=== PATIENT | male | born 1935 | race Caucasian/White ===

== ENCOUNTER → 2018-03-24 | Outpatient (CLI) | payer MEDICARE, BC ==
--- NOTE | 2018-03-24 17:07 | XR ---
EXAMINATION TYPE: XR foot complete LT DATE OF EXAM: 03/24/2018 COMPARISON: NONE HISTORY: Lateral foot pain TECHNIQUE: 3 views FINDINGS: There is spurring and narrowing at the first MP joint. I see no fracture nor dislocation. T here are small degenerative cystic change and erosion at the base of the fifth metatarsal. There are small cystic changes at the first MP joint. There is increased soft tissue density adjacent to the cy stic changes. IMPRESSION: Findings as above. No acute bony abnormality. This could relate to gouty arthritis. No fr acture.
--- NOTE | 2018-03-25 07:44 | US ---
EXAMINATION TYPE: US venous doppler duplex UE LT DATE OF EXAM: 03/24/2018 COMPARISON: NONE CLINICAL HISTORY: R22.32 Swelling of Left Upper Limb. swelling this am, on thinners SIDE PERFORMED: Left Left Arm: Appears negative for DVT Grayscale, color doppler, spectral doppler imaging performed of the deep veins of the left upper extr emity. Visualized portions of the internal jugular vein on the left, subclavian vein, axillary vein, brachial vein, basilic and cephalic veins, radial and ulnar veins are normal. Soft tissue swelling n oted incidentally in the left forearm. There is normal flow, compressibility and vascular waveforms. IMPRESSION: No evident deep venous thrombosis in the visualized veins of the left upper extremity. Follow-up as indicated.
== END | disposition home or self-care (01) ==
LOC: RADUSWWP 15:31
PROVIDERS: ATTEND Internal Medicine
DX: M77.52 Other enthesopathy of left foot and ankle (principal); M25.872 Other specified joint disorders, left ankle and foot; R22.42 Localized swelling, mass and lump, left lower limb; M79.672 Pain in left foot; R22.32 Localized swelling, mass and lump, left upper limb

== ENCOUNTER 2023-03-15 19:56 | Inpatient (IN) | payer MEDICARE, BC ==
[2023-03-15] MEDS ORDERED: ASPIRIN 81 MG PO STA (20:19)
[2023-03-15 20:28] LABS: Basophils % (A) 0 %; Eosinophils # (A) 0.2 k/uL (0-0.7); Eosinophils % (A) 4 %; HGB 15.3 gm/dL (13.0-17.5); Lymphocytes # (A) 1.1 k/uL (1.0-4.8); Lymphocytes % (A) 21 %; MCH 31.8 pg (25.0-35.0); MCHC 32.6 g/dL (31.0-37.0); MCV 97.7 fL (80.0-100.0); Mean Platelet Volume 8.9; Monocytes # (A) 0.6 k/uL (0-1.0); Monocytes % (A) 11 %; Neutrophils # (A) 3.4 k/uL (1.3-7.7); Neutrophils % (A) 63 %; Platelet Count 130 k/uL (150-450); RBC 4.81 m/uL (4.30-5.90); WBC 5.4 k/uL (3.8-10.6)
[2023-03-15 20:35] LABS: ALT 25 U/L (4-49); AST 29 U/L (17-59); African American GFR (CKD) >90 (>60 ml/min/1.73 sqM); Albumin 4.3 g/dL (3.5-5.0); Alkaline Phosphatase 58 U/L (38-126); Anion Gap 11 mmol/L; Blood Urea Nitrogen 25 mg/dL (9-20); Calcium 9.9 mg/dL (8.4-10.2); Carbon Dioxide 23 mmol/L (22-30); Chloride 103 mmol/L (98-107); Glucose 205 mg/dL (74-99); Non-African American GFR(CKD) 79 (>60 ml/min/1.73 sqM); Potassium 4.4 mmol/L (3.5-5.1); Sodium 137 mmol/L (137-145); Total Bilirubin 0.8 mg/dL (0.2-1.3)
[2023-03-15 20:40] LABS: INR 2.5 (<1.2); Partial Thromboplastin Time 28.1 sec (22.0-30.0); Prothrombin Time 24.2 sec (9.0-12.0)
--- NOTE | 2023-03-15 20:48 | XR ---
EXAMINATION TYPE: XR chest 2V DATE OF EXAM: 03/15/2023 COMPARISON: 03/15/2011 HISTORY: Shortness of breath TECHNIQUE: Frontal and lateral views of the chest are obtained. FINDINGS: Scattered senescent parenchymal changes noted. No evidence for infiltrate. No evidence for atelectasis. Heart size is stable. Mediastinal structures are stable and grossly unremarkable. No evidence for hilar prominence. Degenerative changes dorsal spine. IMPRESSION: 1. No evidence for acute pulmonary disease.
[2023-03-15] MEDS ORDERED: NALOXONE 0.4 MG/ML 1 ML VIAL IV PRN (21:25)
[2023-03-15] MEDS ORDERED: WARFARIN 5 MG TAB PO ONE (21:45)
[2023-03-15] MEDS: METOPROLOL TARTRATE 25 MG TAB PO SCH (21:52)
[2023-03-15] MEDS: lisinopriL 5 MG TAB PO SCH (21:56)
[2023-03-15] MEDS: ATORVASTATIN 40 MG TAB PO SCH (22:05)
--- NOTE | 2023-03-15 22:07 | ED ---
General Adult HPI - General Chief complaint: Arrhythmia/Palpitations Stated complaint: AFib Time Seen by Provider: 03/15/23 20:13 Source: patient, EMS, RN notes reviewed, old records reviewed Mode of arrival: EMS Limitations: no limitations - History of Present Illness Initial comments: Patient is an 87-year-old male with past medical history of atrial fibrillation, cardiac bypass, with a pacemaker. Dr. Encinas's office who presents emergency Department complaining of a strange chest discomfort he fell earlier over the left side of his chest, as well as complaints of he may have gone into A. fib. States this has happened twice today. After the second time he called EMS. He states he felt lightheaded like he is given a passed out, had some left sided chest discomfort at that time which also resolved and felt like he had palpitations. Currently is asymptomatic. Denies any shortness of breath. Denies any diaphoresis. Denies any nausea or vomiting. Denies any abdominal pain. Presents over concern for his chest discomfort earlier. He is concerned he may be in A. fib. Uncertain if he is always in A. fib. Denies being shocked by his AICD. - Related Data Home Medications Medication Instructions Recorded Confirmed lisinopriL [Zestril] 5 mg PO BID 04/18/14 03/15/23 Furosemide [Lasix] 20 mg PO DAILY 03/30/18 03/15/23 Warfarin [Coumadin] 5 mg PO PC-SUPPER 03/30/18 03/15/23 Metoprolol Tartrate [Lopressor] 25 mg PO BID 03/15/23 03/15/23 Rosuvastatin [Crestor] 20 mg PO HS 03/15/23 03/15/23 Allergies Allergy/AdvReac Type Severity Reaction Status Date / Time Penicillins Allergy Unknown Verified 03/15/23 22:05 Childhood molds Allergy Mild Unknown Uncoded 03/15/23 22:05 Review of Systems ROS Statement: Those systems with pertinent positive or pertinent negative responses have been documented in the HPI. Review of Systems: CONST: Denies fever EYES: Denies blurry vision ENT: Denies nasal congestion C/V: Denies Chest pain RESP: Denies shortness of breath GI: Denies abdominal pain : Denies dysuria SKIN: Denies rash. MSK: Denies joint pain. NEURO: Denies headache ROS Other: All systems not noted in ROS Statement are negative. Past Medical History Past Medical History: Coronary Artery Disease (CAD), Diabetes Mellitus, GERD/Reflux, Hyperlipidemia, Myocardial Infarction ([place]), Osteoarthritis (OA) Additional Past Medical History / Comment(s): see Dr Mckeon [facility] & [facility] for cardiac hx, SOB,, "borderline diabetic- watches diet", hx gout, arthritis, POLIO AT AGE 3, Last Myocardial Infarction Date:: 1969 History of Any Multi-Drug Resistant Organisms: None Reported Past Surgical History: Cardiac Ablation, Coronary Bypass/CABG, Orthopedic Surgery Additional Past Surgical History / Comment(s): bone surgery on left ankle age 16, CABG 13 YRS AGO Past Anesthesia/Blood Transfusion Reactions: Previous Problems w/ Anesthesia Additional Past Anesthesia/Blood Transfusion Reaction / Comment(s): got gout in big toe after cardiac ablation Type of Cardiac Device: AICD Device Placement Date:: unknown Past Psychological History: No Psychological Hx Reported Smoking Status: Former smoker Past Alcohol Use History: Occasional Past Drug Use History: None Reported - Past Family History Sister(s) Family Medical History: Cancer General Exam - General Exam Comments Initial Comments: General: Appears in no acute distress. HEAD: Normal with no signs of head trauma. EYES: PERRLA, EOMI, conjunctiva normal, no discharge. ENT: Hearing grossly intact, normal oropharynx. RESPIRATORY: Clear breath sounds bilaterally. No wheezes, rales, or rhonchi. C/V: Regular rate and rhythm. S1 and S2 auscultated, no edema, peripheral pulses 2+ and intact throughout ABD: Abd is soft, nontender, nondistended EXT: Normal range of motion, no obvious deformity SKIN: No rashes or lesions observed on exposed skin. NEURO: Alert and oriented x 4. Cranial nerves II-XII intact. No focal sensory or strength deficits. Limitations: no limitations Course Vital Signs 03/15/23 03/15/23 20:02 21:59 Pulse Rate 53 L 50 L Respiratory 18 18 Rate Blood Pressure 129/72 112/68 O2 Sat by Pulse 97 98 Oximetry Medical Decision Making - Medical Decision Making Was pt. sent in by a medical professional or institution (, PA, WASH OPERATOR, urgent care, hospital, or [facility]...) When possible be specific @ -No Did you speak to anyone other than the patient for history (EMS, parent, family, police, friend...)? What history was obtained from this source @ -No Did you review nursing and triage notes (agree or disagree)? Why? @ -I reviewed and agree with nursing and triage notes Were old charts reviewed (outside hosp., previous admission, EMS record, old EKG, old radiological studies, urgent care reports/EKG's, [facility] records)? Report findings @ -Old charts reviewed. Differential Diagnosis (chest pain, altered mental status, abdominal pain women, abdominal pain men, vaginal bleeding, weakness, fever, dyspnea, syncope, headache, dizziness, GI bleed, back pain, seizure, CVA, palpatations, mental health, musculoskeletal)? @ -Differential Chest Pain: Stable Angina, Unstable Angina, STEMI, NSTEMI Aortic Dissection, Pneumothorax, Musculoskeletal, Esophageal Spasm GERD, Cholecystitis, Pancreatitis, Zoster, this is not meant to be an all-inclusive list. EKG interpreted by me (3pts min.). @ -As above X-rays interpreted by me (1pt min.). @ -Chest x-ray reveals no obvious acute cardio pulmonary process. CT interpreted by me (1pt min.). @ -None done U/S interpreted by me (1pt. min.). @ -None done What testing was considered but not performed or refused? (CT, X-rays, U/S, labs)? Why? @ -None What meds were considered but not given or refused? Why? @ -None Did you discuss the management of the patient with other professionals (professionals i.e. , PA, WASH OPERATOR, lab, RT, psych nurse, social worker clinical, copy messenger, teacher, professional security officer, spring encaser)? Give summary @ -No Was smoking cessation discussed for >3mins.? @ -No Was critical care preformed (if so, how long)? @ -No Were there social determinants of health that impacted care today? How? (Homelessness, low income, unemployed, alcoholism, drug addiction, transportation, low edu. Level, literacy, decrease access to med. care, penitentiary, rehab)? @ -No Was there de-escalation of care discussed even if they declined (Discuss DNR or withdrawal of care, Hospice)? DNR status @ -No What co-morbidities impacted this encounter? (DM, HTN, Smoking, COPD, CAD, Cancer, CVA, ARF, Chemo, Hep., AIDS, mental health diagnosis, sleep apnea, morb id obesity)? @ -Significant cardiac history Was patient admitted / discharged? Hospital course, mention meds given and route, prescriptions, significant lab abnormalities, going to OR and other pertinent info. @ -Based on the patient's presentation and physical exam, I'm concerned for acute cardiopulmonary etiology for his current symptoms. We will obtain cardio pulmonary labs. He currently is asymptomatic. He'll be given 324 mg of asp irin. He was in agreement this plan. Vital signs within acceptable limits. EKGs show, that when he is not paced he has some T-wave inversions of unknown chronicity. No obvious ST segment abnormalities. Chest x-ray is unremarkable. Laboratory studies are remarkable for an undetectable troponin. INR is therapeutic. On reevaluation, patient maintains asymptomatic. Patient's heart score is mo derate. We did discuss his results. He will be admitted to observation telemetry. Cardiology will be consulted. He was in agreement this plan. I spoke with the admitting physician, Dr. Loza who accepted the patient. Undiagnosed new problem with uncertain prognosis? @ -No Drug Therapy requiring intensive monitoring for toxicity (Heparin, Nitro, Insulin, Cardizem)? @ -No Were any procedures done? @ -No Diagnosis/symptom? @ -Chest discomfort Acute, or Chronic, or Acute on Chronic? @ -Acute Uncomplicated (without systemic symptoms) or Complicated (systemic symptoms)? @ -Complicated Side effects of treatment? @ -No Exacerbation, Progression, or Severe Exacerbation? @ -No Poses a threat to life or bodily function? How? (Chest pain, [place], AL, pneumonia, PE, COPD, DKA, ARF, appy, cholecystitis, CVA, Diverticulitis, Homicidal, Suicidal, threat to staff... and all critical care pts) @ -yes Diagnosis/symptom? @ -Atrial fibrillation Acute, or Chronic, or Acute on Chronic? @ -Chronic Uncomplicated (without systemic symptoms) or Complicated (systemic symptoms)? @ -Uncomplicated Side effects of treatment? @ -none Exacerbation, Progression, or Severe Exacerbation] @ -no Poses a threat to life or bodily function? @ -no - Lab Data Result diagrams: 03/15/23 20:05 03/15/23 20:05 Lab Results 03/15/23 03/15/23 03/15/23 Range/Units 20:05 20:05 20:05 WBC 5.4 (3.8-10.6) k/uL RBC 4.81 (4.30-5.90) m/uL Hgb 15.3 (13.0-17.5) gm/dL Hct 47.0 (39.0-53.0) % MCV 97.7 (80.0-100.0) fL MCH 31.8 (25.0-35.0) pg MCHC 32.6 (31.0-37.0) g/dL RDW 14.0 (11.5-15.5) % Plt Count 130 L (150-450) k/uL MPV 8.9 Neutrophils % 63 % Lymphocytes % 21 % Monocytes % 11 % Eosinophils % 4 % Basophils % 0 % Neutrophils # 3.4 (1.3-7.7) k/uL Lymphocytes # 1.1 (1.0-4.8) k/uL Monocytes # 0.6 (0-1.0) k/uL Eosinophils # 0.2 (0-0.7) k/uL Basophils # 0.0 (0-0.2) k/uL PT 24.2 H (9.0-12.0) sec INR 2.5 H (<1.2) APTT 28.1 (22.0-30.0) sec Sodium 137 (137-145) mmol/L Potassium 4.4 (3.5-5.1) mmol/L Chloride 103 (98-107) mmol/L Carbon Dioxide 23 (22-30) mmol/L Anion Gap 11 mmol/L BUN 25 H (9-20) mg/dL Creatinine 0.83 (0.66-1.25) mg/dL Est GFR (CKD-EPI)AfAm >90 (>60 ml/min/1.73 sqM) Est GFR (CKD-EPI)NonAf 79 (>60 ml/min/1.73 sqM) Glucose 205 H (74-99) mg/dL Calcium 9.9 (8.4-10.2) mg/dL Magnesium 2.0 (1.6-2.3) mg/dL Total Bilirubin 0.8 (0.2-1.3) mg/dL AST 29 (17-59) U/L ALT 25 (4-49) U/L Alkaline Phosphatase 58 (38-126) U/L Troponin I (0.000-0.034) ng/mL NT-Pro-B Natriuret Pep pg/mL Total Protein 7.0 (6.3-8.2) g/dL Albumin 4.3 (3.5-5.0) g/dL 03/15/23 03/15/23 Range/Units 20:05 20:05 WBC (3.8-10.6) k/uL RBC (4.30-5.90) m/uL Hgb (13.0-17.5) gm/dL Hct (39.0-53.0) % MCV (80.0-100.0) fL MCH (25.0-35.0) pg MCHC (31.0-37.0) g/dL RDW (11.5-15.5) % Plt Count (150-450) k/uL MPV Neutrophils % % Lymphocytes % % Monocytes % % Eosinophils % % Basophils % % Neutrophils # (1.3-7.7) k/uL Lymphocytes # (1.0-4.8) k/uL Monocytes # (0-1.0) k/uL Eosinophils # (0-0.7) k/uL Basophils # (0-0.2) k/uL PT (9.0-12.0) sec INR (<1.2) APTT (22.0-30.0) sec Sodium (137-145) mmol/L Potassium (3.5-5.1) mmol/L Chloride (98-107) mmol/L Carbon Dioxide (22-30) mmol/L Anion Gap mmol/L BUN (9-20) mg/dL Creatinine (0.66-1.25) mg/dL Est GFR (CKD-EPI)AfAm (>60 ml/min/1.73 sqM) Est GFR (CKD-EPI)NonAf (>60 ml/min/1.73 sqM) Glucose (74-99) mg/dL Calcium (8.4-10.2) mg/dL Magnesium (1.6-2.3) mg/dL Total Bilirubin (0.2-1.3) mg/dL AST (17-59) U/L ALT (4-49) U/L Alkaline Phosphatase (38-126) U/L Troponin I 0.013 (0.000-0.034) ng/mL NT-Pro-B Natriuret Pep 3620 pg/mL Total Protein (6.3-8.2) g/dL Albumin (3.5-5.0) g/dL - EKG Data -: EKG Interpreted by Me EKG Comments: 12-lead Electrocardiogram Interpretation Note EKG was reviewed and interpreted by myself. 12-lead ECG performed at 2005 is interpreted by me as revealing atrial fibrillation at a rate of 51 beats per minute. [place] is normal.. QRS duration of 126 ms, QTc of 446 ms. T wave inversions in the lateral precordial leads as well as leads II, III, aVF. Unknown chronicity.. R wave progression across the precordium was satisfactory. 12-lead Electrocardiogram Interpretation Note EKG was reviewed and interpreted by myself. 12-lead ECG performed at 2119 is interpreted by me as revealing ventricular paced rhythm with underlying A. fib at a rate of 49 beats per minute. Left axis deviation. QRS ration is 197 ms, QTc is 522 ms. There were no obvious ST or T wave abnormalities to suggest myocardial ischemia or injury. . . Disposition Clinical Impression: Atrial fibrillation, Chest discomfort Disposition: ADMITTED IP TO THIS HOSP Condition: Stable Time of Disposition: 21:25
[2023-03-16 03:22] LABS: Basophils % (A) 0 %; Eosinophils # (A) 0.2 k/uL (0-0.7); Eosinophils % (A) 3 %; HCT 46.1 % (39.0-53.0); Lymphocytes # (A) 1.8 k/uL (1.0-4.8); Lymphocytes % (A) 31 %; MCH 31.2 pg (25.0-35.0); MCHC 32.5 g/dL (31.0-37.0); MCV 96.2 fL (80.0-100.0); Monocytes # (A) 0.5 k/uL (0-1.0); Monocytes % (A) 8 %; Neutrophils # (A) 3.3 k/uL (1.3-7.7); Neutrophils % (A) 55 %; Platelet Count 128 k/uL (150-450); RBC 4.79 m/uL (4.30-5.90); RDW 14.4 % (11.5-15.5); WBC 5.9 k/uL (3.8-10.6)
[2023-03-16 03:38] LABS: INR 2.7 (<1.2); Prothrombin Time 26.4 sec (9.0-12.0)
[2023-03-16 03:41] LABS: African American GFR (CKD) >90 (>60 ml/min/1.73 sqM); Anion Gap 8 mmol/L; Blood Urea Nitrogen 24 mg/dL (9-20); Calcium 9.9 mg/dL (8.4-10.2); Carbon Dioxide 24 mmol/L (22-30); Chloride 105 mmol/L (98-107); Glucose 131 mg/dL (74-99); Non-African American GFR(CKD) 81 (>60 ml/min/1.73 sqM); Potassium 4.3 mmol/L (3.5-5.1); Sodium 137 mmol/L (137-145)
[2023-03-16] MEDS ORDERED: AMIODARONE 360 MG in DEXTROSE 5% IN WATER 200 ML IV ONE ×2 (08:19)
[2023-03-16] MEDS ORDERED: DEXTROSE 5% IN WATER 100 ML with AMIODARONE 150 MG IV ONE (08:19)
[2023-03-16] MEDS: FUROSEMIDE 10 MG/ML 2 ML VIAL IV SCH ×3 (09:34→23:56)
[2023-03-16] MEDS: FUROSEMIDE 20 MG TAB PO SCH (09:38)
--- NOTE | 2023-03-16 09:40 | P.CRDCN ---
History of Present Illness Consult date: 03/16/23 Consult reason: chest pain, atrial fibrillation History of present illness: History of present illness: This is an 87 year old male patient of Dr. 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 He has a past medical history of ischemic cardiomyopathy status post dual-chamber ICD, V. tach status post ablation, ascending aortic aneurysm, abdominal aortic aneurysm, coronary artery disease, inferior wall aneurysm, paroxysmal atrial fibrillation on Coumadin, hypertension, hyperlipidemia. Patient states for the last 3-4 days he has had episodes where his heart is racing and he feels sometimes lightheaded and dizzy and also has shortness of breath. He states last evening he was sitting at the supper table and it was the worst episode he had so far. He states he almost passed out at that time while he was sitting. He denies having any chest pain with the episodes. Patient was brought into the emergency center and admitted to the observation unit. Patient has had 4 episodes of ventricular tachycardia with heart rate up to 100. Device has been interrogated and it does not appear the patient has had a defibrillator shock. Patient denies having a defibrillator shock. Patient also states that he had an episode this morning when he stood up to use the urinal. He still does not feel quite back to baseline. EKG ventricular paced rhythm, sinus rhythm, telemetry has episodes of atrial fibrillation and flutter and V. tach Chest x-ray: No acute findings WBC 5.9, hemoglobin 15, platelet count 128. INR 2.7. BUN 24 creatinine 0.78. Potassium 4.3, sodium 137. Magnesium 2.0. Troponin negative 3. ProBNP 3620. Blood sugar 131. INR 2.7 Home cardiac medications: Lasix 20 mg daily, lisinopril 5 mg twice daily, Lopressor 25 mg twice daily, Crestor 20 mg at bedtime, Coumadin 5 mg at supper daily Cardiac catheterization in 2007 revealed distal left main 20%, LAD multiple areas of stenosis, diagonal 160%, diagonal to 40%, RCA and LCx totally occluded. [place] to LAD patent. SVG to RCA in 2 LCx patent. Echocardiogram 08/2022 EF 35-40%, grade 2 diastolic dysfunction, mild LVH, severe LAE, ascending aortic aneurysm, moderate to severe MR, moderate TR, RVSP 39 mmHg. Ablation ventricular tachycardia April 2013 Dual-chamber ICD [employer] for severe ischemic cardiomyopathy myopathy and V. fib arrest 05/2008 [place] scan stress test 2019 no ischemia Review Of Systems: At the time of my evaluation: Constitutional: No fever, no chills. No weakness, reports fatigue no lethargy. EENT: No headache. No dizziness. Lungs: Reports shortness of breath, no cough, no sputum production. No wheezing. Cardiovascular: No chest pain, no lower extremity edema. Reports palpitations. No paroxysmal nocturnal dyspnea. No orthopnea. Reports lightheadedness or dizziness. No syncopal episodes. Abdominal: No abdominal pain. No nausea, vomiting. No diarrhea. No constipation. No bloody or tarry stools. Genitourinary: No dysuria.. No urinary retention. Musculoskeletal: No myalgias. No muscle weakness, no frequent falls. No back pain. No neck pain. Integumentary: No wounds. No rash. No unusual bruising. Neurologic: No aphasia. No facial droop. No change in mentation. No head injury. No headache. Physical examination: Gen: This is an 87-year-old male. He is resting in bed and appears to be comfortable at rest. VS: reviewed HEENT: Head is atraumatic, normocephalic. Pupils equal, round. Sclerae is anicteric. NECK: Supple. No JVD. . LUNGS: Clear to auscultation. No wheezes or rhonchi. No intercostal retractions. HEART: Regular rate and rhythm. Systolic murmur. ABDOMEN: Soft No tenderness. EXTREMITIES: No pedal edema. No calf tenderness. NEUROLOGICAL: Patient is awake, alert and oriented x3. Assessment: Recurrent ventricular tachycardia Atrial fibrillation/atrial flutter Ischemic cardiomyopathy status post dual-chamber ICD History of ventricular tachycardia status post ablation Ascending aortic aneurysm Abdominal aortic aneurysm Coronary artery disease Paroxysmal atrial fibrillation Hypertension Hyperlipidemia Plan: Continue patient's home cardiac medications Start patient on amiodarone bolus followed by drip Start patient on Lasix 20 mg IV every 8 hours Transfer a shunt to the cardiac stepdown unit Repeat blood work in the morning Further recommendations to follow based upon clinical course Thank you kindly for this consultation. Nurse practitioner note has been reviewed, I agree with documented findings and plan of care. Patient was seen and examined. Past Medical History Past Medical History: Coronary Artery Disease (CAD), Diabetes Mellitus, GERD/Reflux, Hyperlipidemia, Myocardial Infarction ([place]), Osteoarthritis (OA) Additional Past Medical History / Comment(s): see Dr Mckeon [facility] & P for cardiac hx, SOB,, "borderline diabetic- watches diet", hx gout, arthritis, POLIO AT AGE 3, Last Myocardial Infarction Date:: 1969 History of Any Multi-Drug Resistant Organisms: None Reported Past Surgical History: Cardiac Ablation, Coronary Bypass/CABG, Orthopedic Surgery Additional Past Surgical History / Comment(s): bone surgery on left ankle age 16, CABG 13 YRS AGO Past Anesthesia/Blood Transfusion Reactions: Previous Problems w/ Anesthesia Additional Past Anesthesia/Blood Transfusion Reaction / Comment(s): got gout in big toe after cardiac ablation Type of Cardiac Device: AICD Device Placement Date:: unknown Past Psychological History: No Psychological Hx Reported Smoking Status: Former smoker Past Alcohol Use History: Occasional Past Drug Use History: None Reported - Past Family History Sister(s) Family Medical History: Cancer Medications and Allergies Home Medications Medication Instructions Recorded Confirmed Type lisinopriL [Zestril] 5 mg PO BID 04/18/14 03/15/23 History Furosemide [Lasix] 20 mg PO DAILY 03/30/18 03/15/23 History Warfarin [Coumadin] 5 mg PO PC-SUPPER 03/30/18 03/15/23 History Metoprolol Tartrate [Lopressor] 25 mg PO BID 03/15/23 03/15/23 History Rosuvastatin [Crestor] 20 mg PO HS 03/15/23 03/15/23 History Allergies Allergy/AdvReac Type Severity Reaction Status Date / Time Penicillins Allergy Unknown Verified 03/15/23 22:05 Childhood molds Allergy Mild Unknown Uncoded 03/15/23 22:05 Physical Exam Vitals: Vital Signs Temp Pulse Pulse Resp BP BP Pulse Ox 03/16/23 07:02 97.6 F 53 L 16 115/73 95 03/16/23 02:00 97.5 F L 57 L 16 124/78 97 03/15/23 22:15 96.4 F L 60 16 123/78 97 03/15/23 21:59 50 L 18 112/68 98 03/15/23 20:02 53 L 18 129/72 97 Intake and Output 03/15/23 03/16/23 03/16/23 22:59 06:59 14:59 Output Total 300 Balance -300 Output: Urine 300 Other: Weight 64.41 kg Results 03/16/23 02:54 03/16/23 02:54 Cardiac Enzymes 03/15/23 03/15/23 03/16/23 Range/Units 20:05 20:05 00:00 AST 29 (17-59) U/L Troponin I 0.013 0.013 (0.000-0.034) ng/mL 03/16/23 Range/Units 02:54 AST (17-59) U/L Troponin I 0.014 (0.000-0.034) ng/mL Coagulation 03/15/23 03/16/23 Range/Units 20:05 02:54 PT 24.2 H 26.4 H (9.0-12.0) sec APTT 28.1 (22.0-30.0) sec CBC 03/15/23 03/16/23 Range/Units 20:05 02:54 WBC 5.4 5.9 (3.8-10.6) k/uL RBC 4.81 4.79 (4.30-5.90) m/uL Hgb 15.3 15.0 (13.0-17.5) gm/dL Hct 47.0 46.1 (39.0-53.0) % Plt Count 130 L 128 L (150-450) k/uL Comprehensive Metabolic Panel 03/15/23 03/16/23 Range/Units 20:05 02:54 Sodium 137 137 (137-145) mmol/L Potassium 4.4 4.3 (3.5-5.1) mmol/L Chloride 103 105 (98-107) mmol/L Carbon Dioxide 23 24 (22-30) mmol/L BUN 25 H 24 H (9-20) mg/dL Creatinine 0.83 0.78 (0.66-1.25) mg/dL Glucose 205 H 131 H (74-99) mg/dL Calcium 9.9 9.9 (8.4-10.2) mg/dL AST 29 (17-59) U/L ALT 25 (4-49) U/L Alkaline Phosphatase 58 (38-126) U/L Total Protein 7.0 (6.3-8.2) g/dL Albumin 4.3 (3.5-5.0) g/dL Current Medications Generic Name Dose Route Start Last Admin Trade Name Freq PRN Reason Stop Dose Admin Atorvastatin Calcium 40 mg 03/15/23 21:30 03/15/23 22:05 Atorvastatin 40 Mg Tab PO [address] [facility] Administration Furosemide 20 mg 03/16/23 09:00 Furosemide 20 Mg Tab PO [address]ILY [facility] Lisinopril 5 mg 03/15/23 21:30 03/15/23 21:56 Lisinopril 5 Mg Tab PO Not Given BID [facility] Metoprolol Tartrate 25 mg 03/15/23 21:30 03/15/23 21:52 Metoprolol Tartrate 25 Mg Tab PO Not Given BID [facility] Miscellaneous Information 0 each 03/15/23 21:52 Warfarin Per Pharmacy MISCELLANE DIRECTED PRN PERPROTOCOL Naloxone HCl 0.2 mg 03/15/23 21:25 Naloxone 0.4 Mg/Ml 1 Ml Vial IV Q2M PRN Opioid Reversal Warfarin Sodium 5 mg 03/16/23 18:30 Warfarin 5 Mg Tab PO PC-SUPPER [facility] Protocol Intake and Output 03/15/23 03/16/23 03/16/23 22:59 06:59 14:59 Output Total 300 Balance -300 Output: Urine 300 Other: Weight 64.41 kg 03/16/23 02:54 03/16/23 02:54
[2023-03-16] MEDS: METOPROLOL TARTRATE 25 MG TAB PO SCH ×2 (09:41→21:28)
[2023-03-16] MEDS: lisinopriL 5 MG TAB PO SCH ×2 (11:42→21:28)
--- NOTE | 2023-03-16 14:13 | P.HPIM ---
History of Present Illness H&P Date: 03/16/23 HISTORY OF PRESENT ILLNESS This is an 87-year-old male with past medical history of ischemic cardiomyopathy status post dual-chamber ICD, V. tach status post ablation, ascending aortic aneurysm, abdominal aortic aneurysm, coronary artery disease, inferior wall aneurysm, paroxysmal atrial fibrillation on Coumadin, hypertension, hyperlipidemia, ALLERGIC rhinitis, depression, generalized osteoarthritis. Patient states for the last 3-4 days he has had episodes where his heart is racing and he feels sometimes lightheaded and dizzy and also has shortness of breath. He states last evening he was sitting at the supper table and it was the worst episode he has had so far. He states he almost passed out at that time while he was sitting. He denies having any chest pain with the episodes. Patient was brought into the emergency center and admitted to the observation unit. Patient has had 4 episodes of ventricular tachycardia with heart rate up to 100. Patient also states that he had an episode this morning when he stood up to use the urinal. He does not feel that the defibrillator fired. He still does not feel quite back to baseline. Patient was seen by cardiology, device was interrogated. Patient was started on amiodarone drip and transferred to ICU waiting for a cardiac stepdown unit. REVIEW OF SYSTEMS Constitutional: No fever, no chills, no night sweats. No weight change. No weakness, fatigue or lethargy. No daytime sleepiness. EENT: No headache. No blurred vision or double vision, no loss of vision. No loss of Hearing, no ringing in the ears, no dizziness. No nasal drainage or congestion. No epistaxis. No sore throat. Lungs: No shortness of breath, cough, no sputum production. No wheezing. Cardiovascular: No chest pain, no lower extremity edema. No palpitations. No paroxysmal nocturnal dyspnea. No orthopnea. No lightheadedness or dizziness. No syncopal episodes. Abdominal: No abdominal pain. No nausea, vomiting. No diarrhea. No constipation. No bloody or tarry stools. No loss of appetite. Genitourinary: No dysuria, increased frequency, urgency. No urinary retention. Musculoskeletal: No myalgias. No muscle weakness, no gait dysfunction, no frequent falls. No back pain. No neck pain. Integumentary: No wounds, no lesions. No rash or pruritus. No unusual bruising. No change in hair or nails. Neurologic: No aphasia. No facial droop. No change in mentation. No head injury. No headache. No paralysis. No paresthesia. Psychiatric: No depression. No anxiety. No mood swings. Endocrine: No abnormal blood sugars. No weight change. No excessive sweating or thirst. No cold intolerance. 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 He started at the age of 14 and quit at the age of 34. FAMILY HISTORY Father at age 56 when a car fell on him and had CVA 2. Mother at age 87 from auto accident. Brother alive at age 81 with history of [place] status post CABG 5 vessels and diabetes. Patient has a sister at age 50 from cancer unknown type patient has 3 sons 1 with PAD post stents. PHYSICAL EXAMINATION Gen: This is an 87-year-old male. He is resting in bed and appears to be comfortable and in no acute distress. HEENT: Head is atraumatic, normocephalic. Pupils equal, round. Sclerae is anicteric. NECK: Supple. No JVD. No lymphadenopathy. No thyromegaly. LUNGS: Clear to auscultation. No wheezes or rhonchi. No intercostal retractions. HEART: Regular rate and rhythm. 2/6 Systolic murmur at the left sternal border. ABDOMEN: Soft. Bowel sounds are present. No masses. No tenderness. EXTREMITIES: No pedal edema. No calf tenderness. NEUROLOGICAL: Patient is awake, alert and oriented x3. Cranial nerves 2 through 12 are grossly intact. ASSESSMENT AND PLAN 1. Recurrent ventricular tachycardia. Cardiology consult appreciated. Patient has been started on amiodarone bolus followed by drip and transferred to the ICU waiting for a bed on the cardiac stepdown unit. 2. Atrial fibrillation/atrial flutter, paroxysmal atrial fibrillation. Continue patient on Lopressor 25 mg twice daily, Coumadin 5 mg daily, pharmacy dosing. 3. Ischemic cardiomyopathy status post dual-chamber ICD. Continue patient on Lasix 20 mg IV every 8 hours, Lopressor 25 mg twice daily, lisinopril 5 mg twice daily 4. History of ventricular tachycardia status post ablation. Continue telemetry monitoring. 5. Ascending aortic aneurysm and abdominal aortic aneurysm, stable, continue monitoring. 6. Coronary artery disease status post CABG. Continue patient on atorvastatin 40 mg at bedtime, Lopressor 25 mg twice daily. 7. Hypertension. Continue patient on Lasix 20 mg IV every 8 hours, lisinopril 5 mg twice daily, Lopressor 25 mg twice daily 8. Hyperlipidemia. Continue patient on atorvastatin 40 mg at bedtime 9. Diabetes mellitus type 2, borderline. 10. GI prophylaxis. Protonix daily. 11. DVT prophylaxis. Continue Coumadin, pharmacy dosing. Patient will be admitted to the hospital for a minimum of 2 night stay. DISCHARGE PLAN Return home. Impression and plan of care have been directed as dictated by the signing physician. Lisette Blake nurse practitioner acting as scribe for signing physician. Past Medical History Past Medical History: Coronary Artery Disease (CAD), Diabetes Mellitus, GERD/Reflux, Hyperlipidemia, Myocardial Infarction ([place]), Osteoarthritis (OA) Additional Past Medical History / Comment(s): see Dr Mckeon [facility] for cardiac hx, SOB,, "borderline diabetic- watches diet", hx gout, arthritis, POLIO AT AGE 3, Last Myocardial Infarction Date:: 1969 History of Any Multi-Drug Resistant Organisms: None Reported Past Surgical History: Cardiac Ablation, Coronary Bypass/CABG, Orthopedic Surgery Additional Past Surgical History / Comment(s): bone surgery on left ankle age 16, CABG 13 YRS AGO Past Anesthesia/Blood Transfusion Reactions: Previous Problems w/ Anesthesia Additional Past Anesthesia/Blood Transfusion Reaction / Comment(s): got gout in big toe after cardiac ablation Type of Cardiac Device: AICD Device Placement Date:: unknown Past Psychological History: No Psychological Hx Reported Smoking Status: Former smoker Past Alcohol Use History: Occasional Past Drug Use History: None Reported - Past Family History Sister(s) Family Medical History: Cancer Medications and Allergies Home Medications Medication Instructions Recorded Confirmed Type lisinopriL [Zestril] 5 mg PO BID 04/18/14 03/15/23 History Furosemide [Lasix] 20 mg PO DAILY 03/30/18 03/15/23 History Warfarin [Coumadin] 5 mg PO PC-SUPPER 03/30/18 03/15/23 History Metoprolol Tartrate [Lopressor] 25 mg PO BID 03/15/23 03/15/23 History Rosuvastatin [Crestor] 20 mg PO HS 03/15/23 03/15/23 History Allergies Allergy/AdvReac Type Severity Reaction Status Date / Time Penicillins Allergy Unknown Verified 03/15/23 22:05 Childhood molds Allergy Mild Unknown Uncoded 03/15/23 22:05 Physical Exam Vitals: Vital Signs Temp Pulse Pulse Resp BP BP Pulse Ox 03/16/23 10:45 60 27 H 108/81 97 03/16/23 10:30 52 L 21 131/74 97 03/16/23 10:15 52 L 22 129/85 96 03/16/23 10:00 60 18 147/77 03/16/23 09:45 57 L 21 93 L 03/16/23 09:35 97.6 F 97 18 144/63 03/16/23 09:30 60 42 H 144/63 92 L 03/16/23 09:25 58 L 21 96 03/16/23 09:00 18 03/16/23 08:29 95 03/16/23 07:02 97.6 F 53 L 16 115/73 95 03/16/23 02:00 97.5 F L 57 L 16 124/78 97 03/15/23 22:15 96.4 F L 60 16 123/78 97 03/15/23 21:59 50 L 18 112/68 98 03/15/23 20:02 53 L 18 129/72 97 Intake and Output 03/15/23 03/16/23 03/16/23 22:59 06:59 14:59 Intake Total 300 Output Total 300 1000 Balance -300 -700 Intake: Intake, IV Titration 100 Amount Dextrose 5% in Water 100 100 ml @ 618 mls/hr IV .Q10M ONE with Amiodarone 150 mg Rx#:[id number] Oral 200 Output: Urine 300 1000 Other: Voiding Method Urinal Weight 64.41 kg Results CBC & Chem 7: 03/16/23 02:54 03/16/23 02:54 Labs: Abnormal Lab Results - Last 24 Hours (Table) 03/15/23 03/15/23 03/15/23 Range/Units 20:05 20:05 20:05 Plt Count 130 L (150-450) k/uL PT 24.2 H (9.0-12.0) sec INR 2.5 H (<1.2) BUN 25 H (9-20) mg/dL Glucose 205 H (74-99) mg/dL 03/16/23 03/16/23 03/16/23 Range/Units 02:54 02:54 02:54 Plt Count 128 L (150-450) k/uL PT 26.4 H (9.0-12.0) sec INR 2.7 H (<1.2) BUN 24 H (9-20) mg/dL Glucose 131 H (74-99) mg/dL Thrombosis Risk Factor Assmnt - Choose All That Apply Other Risk Factors: Yes Each Risk Factor Represents 3 Points: Age 75 years or older Other congenital or acquired thrombophilia - If yes, enter type in comment: No Thrombosis Risk Factor Assessment Total Risk Factor Score: 3 Thrombosis Risk Factor Assessment Level: Moderate Risk
[2023-03-16] MEDS: AMIODARONE 450 MG in DEXTROSE 5% IN WATER 250 ML IV SCH ×2 (15:15)
[2023-03-16] MEDS ORDERED: WARFARIN 5 MG TAB PO SCH (18:30)
[2023-03-16] MEDS ORDERED: LATANOPROST 0.005% OPHTH DROPS 2.5 ML BTL BOTH EYES SCH (21:00)
[2023-03-16] MEDS: ATORVASTATIN 40 MG TAB PO SCH (21:28)
[2023-03-17] MEDS: AMIODARONE 450 MG in DEXTROSE 5% IN WATER 250 ML IV SCH ×2 (06:16)
[2023-03-17 07:38] LABS: Basophils % (A) 0 %; Eosinophils # (A) 0.1 k/uL (0-0.7); Eosinophils % (A) 2 %; HCT 46.3 % (39.0-53.0); HGB 15.3 gm/dL (13.0-17.5); Lymphocytes # (A) 1.2 k/uL (1.0-4.8); Lymphocytes % (A) 15 %; MCH 31.7 pg (25.0-35.0); MCV 96.1 fL (80.0-100.0); Mean Platelet Volume 8.9; Monocytes # (A) 0.7 k/uL (0-1.0); Monocytes % (A) 8 %; Neutrophils # (A) 5.7 k/uL (1.3-7.7); Neutrophils % (A) 73 %; Platelet Count 123 k/uL (150-450); RBC 4.82 m/uL (4.30-5.90); RDW 14.3 % (11.5-15.5); WBC 7.8 k/uL (3.8-10.6)
[2023-03-17 07:44] LABS: INR 2.8 (<1.2); Prothrombin Time 27.1 sec (9.0-12.0)
[2023-03-17 08:11] LABS: ALT 24 U/L (4-49); AST 22 U/L (17-59); African American GFR (CKD) >90 (>60 ml/min/1.73 sqM); Albumin 3.9 g/dL (3.5-5.0); Alkaline Phosphatase 53 U/L (38-126); Anion Gap 9 mmol/L; Blood Urea Nitrogen 23 mg/dL (9-20); Calcium 9.8 mg/dL (8.4-10.2); Carbon Dioxide 24 mmol/L (22-30); Chloride 106 mmol/L (98-107); Glucose 161 mg/dL (74-99); Non-African American GFR(CKD) 83 (>60 ml/min/1.73 sqM); Potassium 3.8 mmol/L (3.5-5.1); Sodium 139 mmol/L (137-145); Total Bilirubin 1.1 mg/dL (0.2-1.3); Total Protein 6.5 g/dL (6.3-8.2)
[2023-03-17] MEDS ORDERED: polyethylene glycoL 3350 17 GM POWD.PACK PO SCH (09:00)
[2023-03-17] MEDS ORDERED: AMIODARONE 200 MG TAB PO SCH (10:15)
[2023-03-17] MEDS ORDERED: FUROSEMIDE 20 MG TAB PO SCH ×2 (10:30→11:00)
[2023-03-17] MEDS: METOPROLOL TARTRATE 25 MG TAB PO SCH (10:49)
[2023-03-17] MEDS: lisinopriL 5 MG TAB PO SCH (10:49)
[2023-03-17] MEDS: FUROSEMIDE 10 MG/ML 2 ML VIAL IV SCH (11:29)
[2023-03-17] MEDS: FUROSEMIDE 20 MG TAB PO SCH (11:30)
--- NOTE | 2023-03-17 13:39 | P.PN ---
Subjective HISTORY OF PRESENT ILLNESS: This is an 87 year old male patient of Dr. 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 He has a past medical history of ischemic cardiomyopathy status post dual-chamber ICD, V. tach status post ablation, ascending aortic aneurysm, abdominal aortic aneurysm, coronary artery disease, inferior wall aneurysm, paroxysmal atrial fibrillation on Coumadin, hypertension, hyperlipidemia. Patient states for the last 3-4 days he has had episodes where his heart is racing and he feels sometimes lightheaded and dizzy and also has shortness of breath. He states last evening he was sitting at the supper table and it was the worst episode he had so far. He states he almost passed out at that time while he was sitting. He denies having any chest pain with the episodes. Patient was brought into the emergency center and admitted to the observation unit. Patient has had 4 episodes of ventricular tachycardia with heart rate up to 100. Device has been interrogated and it does not appear the patient has had a defibrillator shock. Patient denies having a defibrillator shock. Patient also states that he had an episode this morning when he stood up to use the urinal. He still does not feel quite back to baseline. EKG ventricular paced rhythm, sinus rhythm, telemetry has episodes of atrial fibrillation and flutter and V. tach Chest x-ray: No acute findings WBC 5.9, hemoglobin 15, platelet count 128. INR 2.7. BUN 24 creatinine 0.78. Potassium 4.3, sodium 137. Magnesium 2.0. Troponin negative 3. ProBNP 3620. Blood sugar 131. INR 2.7 Home cardiac medications: Lasix 20 mg daily, lisinopril 5 mg twice daily, Lopressor 25 mg twice daily, Crestor 20 mg at bedtime, Coumadin 5 mg at supper daily Cardiac catheterization in 2007 revealed distal left main 20%, LAD multiple areas of stenosis, diagonal 160%, diagonal to 40%, RCA and LCx totally occluded. VILLANUEVA to LAD patent. SVG to RCA in 2 LCx patent. Echocardiogram 08/2022 EF 35-40%, grade 2 diastolic dysfunction, mild LVH, severe LAE, ascending aortic aneurysm, moderate to severe MR, moderate TR, RVSP 39 mmHg. Ablation ventricular tachycardia April 2013 Dual-chamber ICD [employer] for severe ischemic cardiomyopathy myopathy and V. fib arrest 05/2008 [place] scan stress test 2019 no ischemia 03/17/2023 Patient examined this morning at the bedside. Patient denies chest pain or pressure. He denies shortness of breath. He remains on IV amiodarone. Patient has not been out of bed yet this morning. Patient's vital signs are stable. No further episodes of ventricular tachycardia. PHYSICAL EXAM: VITAL SIGNS: Reviewed. GENERAL: Well-developed in no acute distress. NECK: Supple. No JVD or thyromegaly LUNGS: Respirations even and unlabored. Lungs essentially clear to auscultation bilaterally. HEART: Regular rate and rhythm. S1 and S2 heard. EXTREMITIES: Normal range of motion. No clubbing or cyanosis. Peripheral pulses intact. No lower extremity edema ASSESSMENT: Recurrent ventricular tachycardia Atrial fibrillation/atrial flutter Ischemic cardiomyopathy status post dual-chamber ICD History of ventricular tachycardia status post ablation Ascending aortic aneurysm Abdominal aortic aneurysm Coronary artery disease Paroxysmal atrial fibrillation Hypertension Hyperlipidemia PLAN: Discontinue IV amiodarone. Begin oral amiodarone 400 mg twice a day. This may be decreased to 200 mg twice a day after 1 week Discontinue IV Lasix. Resume oral Lasix. Patient states he was only taking half of a tablet at home. Patient instructed to take a full 20 mg of Lasix daily. Patient verbalized understanding. Continue additional cardiac medications Patient is stable for discharge home today from a cardiac standpoint Nurse practitioner note has been reviewed by physician. Signing provider agrees with the documented findings, assessment, and plan of care. Objective - Vital Signs Vital signs: Vital Signs Temp 98.0 F 03/17/23 09:15 Pulse 52 L 03/17/23 09:15 Resp 18 03/17/23 09:15 BP 113/54 03/17/23 09:15 Pulse Ox 97 03/17/23 11:35 FiO2 Intake & Output 03/16/23 03/17/23 03/17/23 18:59 06:59 18:59 Intake Total 300 250 460 Output Total 1000 1300 200 Balance -700 -1050 260 Weight 62.6 kg Intake: Intake, IV Titration 100 250 Amount Amiodarone 450 mg In 250 Dextrose 5% in Water 250 ml @ 0.5 MG/MIN 16.667 mls/hr IV .Q15H [facility] Rx#: [id number] Dextrose 5% in Water 100 100 ml @ 618 mls/hr IV .Q10M ONE with Amiodarone 150 mg Rx#:[id number] Oral 200 460 Output: Urine 1000 1300 200 Other: Voiding Method Urinal Urinal # Bowel Movements 1 1 - Labs CBC & Chem 7: 03/17/23 07:15 03/17/23 07:15 Labs: Abnormal Lab Results - Last 24 Hours (Table) 03/17/23 03/17/23 03/17/23 Range/Units 07:15 07:15 07:15 Plt Count 123 L (150-450) k/uL PT 27.1 H (9.0-12.0) sec INR 2.8 H (<1.2) BUN 23 H (9-20) mg/dL Glucose 161 H (74-99) mg/dL
--- NOTE | 2023-03-17 14:06 | P.DS ---
Providers Date of admission: 03/16/23 10:54 Expected date of discharge: 03/17/23 Attending physician: Lilly Loza Consults: 03/15/23 21:25 Consult Physician Routine Consulting Provider: [facility] Reason/Comments: chest dyscomfort, afib Do you want consulting provider notified?: Yes Primary care physician: Lilly Loza Hospital Course: HISTORY OF PRESENT ILLNESS This is an 87-year-old male with past medical history of ischemic cardiomyopathy status post dual-chamber ICD, V. tach status post ablation, ascending aortic aneurysm, abdominal aortic aneurysm, coronary artery disease, inferior wall aneurysm, paroxysmal atrial fibrillation on Coumadin, hypertension, hyperlipidemia, ALLERGIC rhinitis, depression, generalized osteoarthritis. Patient states for the last 3-4 days he has had episodes where his heart is racing and he feels sometimes lightheaded and dizzy and also has shortness of breath. He states last evening he was sitting at the supper table and it was the worst episode he has had so far. He states he almost passed out at that time while he was sitting. He denies having any chest pain with the episodes. Patient was brought into the emergency center and admitted to the observation unit. Patient has had 4 episodes of ventricular tachycardia with heart rate up to 100. Patient also states that he had an episode this morning when he stood up to use the urinal. He does not feel that the defibrillator fired. He still does not feel quite back to baseline. Patient was seen by cardiology, device was interrogated. Patient was started on amiodarone drip and transferred to ICU waiting for a cardiac stepdown unit. 03/17: Patient was taken off Cardizem drip and placed on Cardizem 400 mg twice daily on a tapering dose. Patient to be on 400 mg twice daily for 7 days and then 200 mg twice daily. Cardiology is evaluating the patient's morning and has been cleared for discharge. Heart rate is running in the 50s, blood pressure 113/54, pulse ox 97% on room air. Repeat blood work reveals platelet count 123. INR 2.8. Electrolytes are normal including potassium of 3.8. BUN 23 creatinine 0.73. His son is at bedside and will be taking patient home today. ASSESSMENT AND PLAN 1. Recurrent ventricular tachycardia. 2. Atrial fibrillation/atrial flutter, paroxysmal atrial fibrillation. 3. Ischemic cardiomyopathy status post dual-chamber ICD. 4. History of ventricular tachycardia status post ablation. 5. Ascending aortic aneurysm and abdominal aortic aneurysm, stable. 6. Coronary artery disease status post CABG. 7. Hypertension. 8. Hyperlipidemia. 9. Diabetes mellitus type 2, borderline. DISCHARGE PLAN Return home. Greater than 35 minutes was utilized and coordinating patient's discharge. Impression and plan of care have been directed as dictated by the signing physician. Lisette Blake nurse practitioner acting as scribe for signing physician. Patient Condition at Discharge: Stable Plan - Discharge Summary Discharge Rx Participant: No New Discharge Prescriptions: New Amiodarone [Cordarone] 200 mg PO BID #180 tab Continue lisinopriL [Zestril] 5 mg PO BID Warfarin [Coumadin] 5 mg PO PC-SUPPER Furosemide [Lasix] 20 mg PO DAILY Rosuvastatin [Crestor] 20 mg PO HS Metoprolol Tartrate [Lopressor] 25 mg PO BID Latanoprost [Latanoprost 0.005%] 1 drop BOTH EYES HS Discharge Medication List lisinopriL [Zestril] 5 mg PO BID 04/18/14 [History] Furosemide [Lasix] 20 mg PO DAILY 03/30/18 [History] Warfarin [Coumadin] 5 mg PO PC-SUPPER 03/30/18 [History] Metoprolol Tartrate [Lopressor] 25 mg PO BID 03/15/23 [History] Rosuvastatin [Crestor] 20 mg PO HS 03/15/23 [History] Latanoprost [Latanoprost 0.005%] 1 drop BOTH EYES HS 03/16/23 [History] Amiodarone [Cordarone] 200 mg PO BID #180 tab 03/17/23 [Rx] Follow up Appointment(s)/Referral(s): Lisandro Mckeon MD [STAFF PHYSICIAN] - 1 Week Lilly Loza MD [Primary Care Provider] - 1 Week Discharge Disposition: HOME SELF-CARE
[2023-03-17 16:13] VITALS: BP 107/64; RESP 16; TEMP 97.1
[2023-03-17 16:18] VITALS: PULSE 52
== END 2023-03-17 16:15 | disposition home or self-care (01) | DRG 309 ==
LOC: EC 19:56 → 6NMEDSUR 21:25 → 2SICU 03-16 09:23 → OBSVTOIN 03-16 10:54 → 3SCARD 03-16 20:42
PROVIDERS: ADMIT Internal Medicine; ATTEND Internal Medicine
DX: I47.20 Ventricular tachycardia, unspecified (principal); I25.110 Atherosclerotic heart disease of native coronary artery with unstable angina pectoris; I48.0 Paroxysmal atrial fibrillation; I48.92 Unspecified atrial flutter; I25.5 Ischemic cardiomyopathy; I10 Essential (primary) hypertension; I08.1 Rheumatic disorders of both mitral and tricuspid valves; J30.9 Allergic rhinitis, unspecified; I25.2 Old myocardial infarction; E11.9 Type 2 diabetes mellitus without complications; M10.9 Gout, unspecified; I71.21 Aneurysm of the ascending aorta, without rupture; I71.40 Abdominal aortic aneurysm, without rupture, unspecified; M15.9 Polyosteoarthritis, unspecified; E78.5 Hyperlipidemia, unspecified; Z95.1 Presence of aortocoronary bypass graft; Z79.01 Long term (current) use of anticoagulants; Z79.899 Other long term (current) drug therapy; Z95.810 Presence of automatic (implantable) cardiac defibrillator; Z86.12 Personal history of poliomyelitis; Z86.74 Personal history of sudden cardiac arrest; Z87.891 Personal history of nicotine dependence; Z86.79 Personal history of other diseases of the circulatory system; Z82.49 Family history of ischemic heart disease and other diseases of the circulatory system; Z88.0 Allergy status to penicillin
CPT/HCPCS: 36415; 71046; 80048; 80053; 83735; 83880; 84484; 85025; 85610; 85730; 93005; 94760; 99285

== ENCOUNTER → 2025-04-18 | Outpatient (CLI) | payer MEDICARE, BC ==
[2025-04-18 16:33] LABS: ALT 21 U/L (10-49); AST 22 U/L (14-35); Albumin 4.2 g/dL (3.8-4.9); Albumin/Globulin Ratio 1.91 Ratio (1.60-3.17); Alkaline Phosphatase 62 U/L (41-126); Anion Gap 11.70 mmol/L (4.00-12.00); BUN/Creat Ratio 46.00 Ratio (12.00-20.00); Blood Urea Nitrogen 36.8 mg/dL (9.0-27.0); Calcium 10.2 mg/dL (8.7-10.3); Carbon Dioxide 24.3 mmol/L (21.6-31.8); Chloride 106 mmol/L (96-109); Cholesterol 116.00 mg/dL (0.00-200.00); Globulin 2.2 g/dL (1.6-3.3); Glucose 99 mg/dL (70-110); HDL Cholesterol 35.60 mg/dL (40.00-60.00); LDL Cholesterol,Calculated 67.2 mg/dL (0.0-131.0); Magnesium 2.1 mg/dL (1.5-2.4); Potassium 4.0 mmol/L (3.5-5.5); Sodium 142 mmol/L (135-145); Total Protein 6.4 g/dL (6.2-8.2); Triglycerides 66.00 mg/dL (0.00-149.00); VLDL Calculation 13.20 mg/dL (5.00-40.00)
== END | disposition home or self-care (01) ==
LOC: LABWHC1 11:01
PROVIDERS: ATTEND Internal Medicine Clinical Cardiac Electrophysiology
DX: I10 Essential (primary) hypertension (principal); E78.5 Hyperlipidemia, unspecified
CPT/HCPCS: 36415; 80053; 80061; 83735; 84443

== ENCOUNTER → 2025-04-20 | Outpatient (CLI) | payer MEDICARE, BC ==
--- NOTE | 2025-04-20 09:59 | US ---
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 IMPRESSION: 1 large left renal cyst favored over hydronephrosis. No nephrolithiasis. Recommend follow-up CT scan [facility], , 04/20/2025 9:57 AM
== END | disposition home or self-care (01) ==
LOC: RADUSWWP 08:57
PROVIDERS: ATTEND Internal Medicine Clinical Cardiac Electrophysiology
DX: I82.3 Embolism and thrombosis of renal vein (principal); N28.1 Cyst of kidney, acquired
CPT/HCPCS: 76770